=== PATIENT | male | born 1985 | race African-American/Black ===

== ENCOUNTER 2017-03-06 12:22 | Emergency (ER) | payer SELFPAY ==
[~2017-03-06] VITALS: Ht 177.8 cm; Wt 181.4 kg
[2017-03-06 12:45] VITALS: BP 157/65
[2017-03-06] MEDS ORDERED: HYDROcodone/APAP 5/325MG 1 TAB TABLET PO ONE (13:00)
[2017-03-06] MEDS ORDERED: diphenhydrAMINE HCL 25 MG CAPSULE PO ONE (13:00)
[2017-03-06] MEDS ORDERED: IBUPROFEN 800 MG TABLET. PO ONE (13:00)
--- NOTE | 2017-03-06 13:16 | PHYS DOC ---
Adult General Chief Complaint Chief Complaint: HEADACHE HPI HPI Patient is a 31 year old male presents the ED complaining of headache 2 days. Patient has a history of migraines. States this headache has not gone away. Describes the headache as sharp. Rates the headache as 9 out of 10. States his headache is in the front and side of his head. Associated symptoms include photophobia. Denies nausea/vomiting, head/neck injury, LOC, vision changes, neck pain, chest pain, shortness of breath, fever or flulike symptoms. Review of Systems Review of Systems Constitutional: Denies fever or chills [] Eyes: Denies change in visual acuity, redness, or eye pain [] HENT: Denies nasal congestion or sore throat [] Respiratory: Denies cough or shortness of breath [] Cardiovascular: No additional information not addressed in HPI [] GI: Denies abdominal pain, nausea, vomiting, bloody stools or diarrhea [] : Denies dysuria or hematuria [] Musculoskeletal: Denies back pain or joint pain [] Integument: Denies rash or skin lesions [] Neurologic: Denies headache, focal weakness or sensory changes [] Endocrine: Denies polyuria or polydipsia [] All other systems were reviewed and found to be within normal limits, except as documented in this note. Current Medications Current Medications Current Medications Medications (Trade) Dose Ordered Sig/Geoff Start Time Stop Time Status Last Admin Dose Admin Acetaminophen/ Hydrocodone Bitart (Lortab 5/325) 1 tab 1X ONCE 03/06/17 13:00 03/06/17 13:01 DC 03/06/17 13:07 1 TAB Diphenhydramine HCl (Benadryl) 25 mg 1X ONCE 03/06/17 13:00 03/06/17 13:01 DC 03/06/17 13:07 25 MG Ibuprofen (Motrin) 800 mg 1X ONCE 03/06/17 13:00 03/06/17 13:01 DC 03/06/17 13:07 800 MG Allergies Allergies Allergies Coded Allergies Type Severity Reaction Last Updated Verified No Known Drug Allergies 03/06/17 No Physical Exam Physical Exam Constitutional: Well developed, well nourished, no acute distress, non-toxic appearance. [] HENT: Normocephalic, atraumatic, bilateral external ears normal, oropharynx moist, no oral exudates, nose normal. [] Eyes: PERRLA, EOMI, conjunctiva normal, no discharge. [] Neck: Normal range of motion, no tenderness, supple, no stridor. [] Cardiovascular:Heart rate regular rhythm, no murmur [] Lungs & Thorax: Bilateral breath sounds clear to auscultation [] Abdomen: Bowel sounds normal, soft, no tenderness, no masses, no pulsatile masses. [] Skin: Warm, dry, no erythema, no rash. [] Back: No tenderness, no CVA tenderness. [] Neurologic: Alert and oriented X 3, normal motor function, normal sensory function, no focal deficits noted. [] Psychologic: Affect normal, judgement normal, mood normal. [] Current Patient Data Vital Signs Vital Signs Date Time Temp Pulse Resp B/P (MAP) Pulse Ox O2 Delivery O2 Flow Rate FiO2 03/06/17 12:45 99.1 102 20 98 Room Air 99.1 EKG EKG [] Radiology/Procedures Radiology/Procedures []PROCEDURE: CT HEAD WO CONTRAST One or more of the following individualized dose reduction techniques were utilized for this examination: 1. Automated exposure control 2. Adjustment of the mA and/or kV according to patient size 3. Use of iterative reconstruction technique CT brain without contrast. History: Headache CT scan of the brain was done without contrast. There is mild motion artifact on the images. Ventricles are normal in size. There is no intracranial hemorrhage. An acute CVA is not identified. There is a prominent mucous retention cyst in the left maxillary sinus. Impression: 1. Prominent mucous retention cyst left maxillary antrum. 2. Motion artifact limits the study. 3. No definite hemorrhage or acute finding intracranially. Course & Med Decision Making Course & Med Decision Making Pertinent Labs and Imaging studies reviewed. (See chart for details) []Discussed imaging findings with patient. Patient's headache improved. Vital stable, no acute distress. No focal neural deficits. Discussed follow-up with PCP early this next week. Provided contact information/education for neurology follow-up. Discussed reasons to return to the ED. Patient understands and agrees with plan. Dragon Disclaimer Dragon Disclaimer This electronic medical record was generated, in whole or in part, using a voice recognition dictation system. Departure Departure Impression: Primary Impression: Headache Disposition: 01 HOME, SELF-CARE Condition: IMPROVED Referrals: MARY JIMÉNEZ MD Patient Instructions: Migraine Headache Scripts Tramadol Hcl (TRAMADOL HCL) 50 Mg Tablet 1 TAB PO PRN Q6HRS, #12 TAB Prov: SYMONE HODGE 03/06/17 SYMONE HODGE Mar 06, 2017 13:16
--- NOTE | 2017-03-06 14:37 | RAD ---
One or more of the following individualized dose reduction techniques were utilized for this examination: 1. Automated exposure control 2. Adjustment of the mA and/or kV according to patient size 3. Use of iterative reconstruction technique CT brain without contrast. History: Headache CT scan of the brain was done without contrast. There is mild motion artifact on the images. Ventricles are normal in size. There is no intracranial hemorrhage. An acute CVA is not identified. There is a prominent mucous retention cyst in the left maxillary sinus. Impression: 1. Prominent mucous retention cyst left maxillary antrum. 2. Motion artifact limits the study. 3. No definite hemorrhage or acute finding intracranially.
[2017-03-06] MEDS ORDERED: TRAM50TA PO (14:41)
== END 2017-03-06 14:59 | disposition home or self-care (01) ==
LOC: ER 12:22
DX: R51 Headache (principal); G43.909 Migraine, unspecified, not intractable, without status migrainosus
CPT/HCPCS: 70450; 99284; Q0163